=== PATIENT | female | born 1975 | race Caucasian/White ===

== ENCOUNTER 2017-05-02 08:15 | Emergency (ER) | payer OTHER ==
[2017-05-02] MEDS ORDERED: Alum-Mag Hydrox-Simethicone Susp (30 mL) PO STA (09:25)
--- NOTE | 2017-05-02 09:28 | C.PDOC ---
History Of Present Illness 41 y/o F c no PMHx p/w epigastric pain x 2 days. Pain is epigastric, nonradiating, sharp, started while cooking. Patient denies fever, chills, cough , hemoptysis, leg swelling, recent travel, recent surgery, hormone use, previous DVT or PE, nausea, vomiting, diarrhea. Time Seen by Provider: 05/02/17 09:14 Chief Complaint (Nursing): Chest Pain Past Medical History Vital Signs: Last Vital Signs Temp 97.6 F 05/02/17 12:02 Pulse 68 05/02/17 12:02 Resp 17 05/02/17 12:02 BP 110/70 05/02/17 12:02 Pulse Ox 98 05/02/17 13:27 Surgical History: Cholecystectomy Family History: States: Unknown Family Hx - Social History Hx Alcohol Use: No Hx Substance Use: No - Immunization History Hx Tetanus Toxoid Vaccination: No Hx Influenza Vaccination: No Hx Pneumococcal Vaccination: No Review Of Systems Except As Marked, All Systems Reviewed And Found Negative. Constitutional: Negative for: Fever Gastrointestinal: Negative for: Vomiting Physical Exam - Physical Exam Additional Physical Exam Comments: Gen: NAD Head: NC Eyes: No scleral icterus ENT: MMM Neck: Supple Chest: No tenderness CV: Regular rate Lungs: CTA b/l. Normal pulse oximetry. Abd: Epigastric tenderness without guarding or rebound. Soft Back: No CVA tenderness Skin: No rash Extremities: No leg swelling Neuro: Alert, no focal deficit ED Course And Treatment - Laboratory Results Result Diagrams: 05/02/17 09:34 05/02/17 09:34 O2 Sat by Pulse Oximetry: 98 Medical Decision Making Medical Decision Making: No abdominal guarding, will treat with medications for gastritis and reassess. Will check enzymes in this pain of 2 days. PERC negative. EKG NSR 70 bpm, no ST/T wave changes, normal axis, normal intervals. CXR HISTORY: chest pain COMPARISON: Chest x-ray performed 11/01/15 TECHNIQUE: Chest PA and lateral FINDINGS: LUNGS: No focal consolidation. Please note that chest x-ray has limited sensitivity for the detection of pulmonary masses. PLEURA: No significant pleural effusion identified. No definite pneumothorax . CARDIOVASCULAR: The cardiomediastinal silhouette appears within normal limits of size. OSSEOUS STRUCTURES: No acute osseous abnormality identified. VISUALIZED UPPER ABDOMEN: Unremarkable. OTHER FINDINGS: None. IMPRESSION: No focal consolidation identified. US - Abdomen HISTORY: RUQ/epigastric pain COMPARISON: Abdominal ultrasound 09/26/2015 TECHNIQUE: Sonographic evaluation of the abdomen. FINDINGS: LIVER: Measures 15.0 cm. Normal echogenicity of the liver parenchyma. No mass. No intrahepatic bile duct dilatation. Normal hepatopetal portal venous flow. GALLBLADDER: Unremarkable. No gallstones. COMMON BILE DUCT: Measures 3 mm. No stones. No dilatation. PANCREAS: Unremarkable as visualized. No mass. No ductal dilatation. RIGHT KIDNEY: Measures 13.1cm. Normal echogenicity. No calculus, mass, or hydronephrosis. LEFT KIDNEY: Measures 13.0cm. Normal echogenicity. No calculus or hydronephrosis. Lower pole cyst with nodular mural echogenic structure, likely calcification. . This cyst measures 0.6 x 0.9 x 1.3 cm. This was not seen on prior ultrasound examination. SPLEEN: Normal in size and contour. No mass. AORTA: No aneurysmal dilatation. IVC: Unremarkable. OTHER FINDINGS: None. IMPRESSION: Left lower pole renal cyst with nodular mural calcification. Otherwise unremarkable examination. NOTE: After US, patient states abdominal pain is resolved but now when taking breath, pain in the R upper shoulder/chest. Will send for d dimer. Impression: No large central or segmental pulmonary embolus identified. Patient in no distress, would like to go home. Instructed to f/u with primary care, return to ED for worsening symptoms. Disposition - Disposition Disposition: HOME/ ROUTINE Disposition Time: 13:09 Condition: STABLE Additional Instructions: Accession No. : [id number] Patient Name / ID : TOMMIE GAONA / [id number] Exam Date : 05/02/2017 12:37:57 ( Approved ) Study Comment : Sex / Age : F / 41Y Creator : Fredi Yu MD Dictator : Fredi Yu MD Astro Technician : Enrollment Specialist : Fredi Yu MD Approver2 : Report Date : 05/02/2017 13:04:58 My Comment : HISTORY: RUQ/epigastric pain COMPARISON: Abdominal ultrasound 09/26/2015 TECHNIQUE: Sonographic evaluation of the abdomen. FINDINGS: LIVER: Measures 15.0 cm. Normal echogenicity of the liver parenchyma. No mass. No intrahepatic bile duct dilatation. Normal hepatopetal portal venous flow. GALLBLADDER: Unremarkable. No gallstones. COMMON BILE DUCT: Measures 3 mm. No stones. No dilatation. PANCREAS: Unremarkable as visualized. No mass. No ductal dilatation. RIGHT KIDNEY: Measures 13.1cm. Normal echogenicity. No calculus, mass, or hydronephrosis. LEFT KIDNEY: Measures 13.0cm. Normal echogenicity. No calculus or hydronephrosis. Lower pole cyst with nodular mural echogenic structure, likely calcification. . This cyst measures 0.6 x 0.9 x 1.3 cm. This was not seen on prior ultrasound examination. SPLEEN: Normal in size and contour. No mass. AORTA: No aneurysmal dilatation. IVC: Unremarkable. OTHER FINDINGS: None. IMPRESSION: Left lower pole renal cyst with nodular mural calcification. Otherwise unremarkable examination. Instructions: Acute Abdomen (Belly Pain), Adult (DC) Forms: [employer] (Ukrainian) - Clinical Impression Clinical Impression: Epigastric pain
[2017-05-02 09:37] LABS: BASO % 0.4 % (0.0-2.0); EOS # 0.1 K/uL (0.0-0.7); EOS % 2.2 % (0.0-4.0); HEMOGLOBIN 13.1 g/dL (11.0-16.0); LYMPH # 2.1 K/uL (1.0-4.3); LYMPH % 33.9 % (20.0-40.0); MEAN CELL VOLUME 86.4 fL (81.0-99.0); MEAN CORPUSCULAR HEMOGLOBIN 29.9 pg (27.0-31.0); MEAN CORPUSCULAR HGB CONC 34.6 g/dL (33.0-37.0); MEAN PLATELET VOLUME 10.2 fL (7.2-11.7); MONO # 0.3 K/uL (0.0-0.8); MONO % 5.4 % (0.0-10.0); NEUT # 3.6 K/uL (1.8-7.0); NEUT % 58.1 % (50.0-75.0); RBC 4.39 Mil/uL (3.80-5.20); RED CELL DISTRIBUTION WIDTH 13.6 % (11.5-14.5); WHITE BLOOD COUNT 6.2 K/uL (4.8-10.8)
[2017-05-02] MEDS ORDERED: Aluminum Hydroxide/Magnesium Hydroxide Susp (30 mL) ONE (09:45)
[2017-05-02 09:56] LABS: ALB/GLOB RATIO 1.1 (1.0-2.1); ALT/SGPT 17 U/L (9-52); AST/SGOT 24 U/L (14-36); BLOOD UREA NITROGEN 14 mg/dL (7-17); CALCIUM 9.2 mg/dl (8.6-10.4); GFR AFRICAN-AMERICAN > 60; GFR NON-AFRICAN AMERICAN > 60; LIPASE 95 U/L (23-300)
[2017-05-02 10:02] LABS: CK-MB 0.38 ng/mL (0.0-3.38)
[2017-05-02 10:09] LABS: HCG,QUALITATIVE URINE NEGATIVE (NEGATIVE)
[2017-05-02 10:14] LABS: SQUAMOUS EPITHIAL 8 /hpf (0-5); URINE BILIRUBIN NEGATIVE (NEGATIVE); URINE BLOOD NEGATIVE (NEGATIVE); URINE CLARITY Hazy (Clear); URINE COLOR Yellow (YELLOW); URINE GLUCOSE (UA) NORMAL (Normal); URINE LEUKOCYTE ESTERASE TRACE Leu/uL (Negative); URINE NITRATE NEGATIVE (NEGATIVE); URINE PROTEIN NEGATIVE (NEGATIVE); URINE UROBILINOGEN NORMAL mg/dL (0.2-1.0)
--- NOTE | 2017-05-02 11:48 | RAD ---
HISTORY: chest pain COMPARISON: Chest x-ray performed 11/01/15 TECHNIQUE: Chest PA and lateral FINDINGS: LUNGS: No focal consolidation. Please note that chest x-ray has limited sensitivity for the detection of pulmonary masses. PLEURA: No significant pleural effusion identified. No definite pneumothorax . CARDIOVASCULAR: The cardiomediastinal silhouette appears within normal limits of size. OSSEOUS STRUCTURES: No acute osseous abnormality identified. VISUALIZED UPPER ABDOMEN: Unremarkable. OTHER FINDINGS: None. IMPRESSION: No focal consolidation identified.
--- NOTE | 2017-05-02 13:06 | US ---
HISTORY: RUQ/epigastric pain COMPARISON: Abdominal ultrasound 09/26/2015 TECHNIQUE: Sonographic evaluation of the abdomen. FINDINGS: LIVER: Measures 15.0 cm. Normal echogenicity of the liver parenchyma. No mass. No intrahepatic bile duct dilatation. Normal hepatopetal portal venous flow. GALLBLADDER: Unremarkable. No gallstones. COMMON BILE DUCT: Measures 3 mm. No stones. No dilatation. PANCREAS: Unremarkable as visualized. No mass. No ductal dilatation. RIGHT KIDNEY: Measures 13.1cm. Normal echogenicity. No calculus, mass, or hydronephrosis. LEFT KIDNEY: Measures 13.0cm. Normal echogenicity. No calculus or hydronephrosis. Lower pole cyst with nodular mural echogenic structure, likely calcification. . This cyst measures 0.6 x 0.9 x 1.3 cm. This was not seen on prior ultrasound examination. SPLEEN: Normal in size and contour. No mass. AORTA: No aneurysmal dilatation. IVC: Unremarkable. OTHER FINDINGS: None. IMPRESSION: Left lower pole renal cyst with nodular mural calcification. Otherwise unremarkable examination.
[2017-05-02] MEDS ORDERED: Iodixanol 320 MG/ML 100 ML BOTTLE IV ONE (15:46)
--- NOTE | 2017-05-02 16:53 | CT ---
CTA chest PE protocol Indication: pleuritic chest pain, elevated d dimer Technique: Contiguous axial images were obtained through the chest with intravenous contrast enhancement. Sagittal and coronal reconstructions were generated and reviewed. This CT exam was performed using 1 or more of the following dose reduction techniques: Automated exposure control, adjustment of the MAA and/or kV according to patient size, and/or use of iterative reconstruction technique. IV Contrast: 100 mL Visipaque IV Radiation dose (DLP): 422.97 MGy-cm. Comparison: Chest x-ray performed 05/02/17 Findings: Visualized portions of the inferior thyroid gland appear unremarkable. The mediastinal and hilar vascular structures appear within normal limits. The heart appears within normal limits of size. No large central or segmental pulmonary embolus evident. No focal consolidation. No pleural effusion. No pneumothorax. No suspicious pulmonary nodules measuring greater than 5 mm. Limited visualized portions of the upper abdomen appear grossly unremarkable. No acute osseous abnormality is detected. Impression: No large central or segmental pulmonary embolus identified.
[2017-05-02 17:05] VITALS: BP 110/62; PULSE 61; RESP 15; TEMP 98.2; O2SAT 99
--- NOTE | 2017-05-03 20:15 | CARD ---
APPROVED REPORT EKG Measurement Heart [id number] <Conclusion> Normal sinus rhythm Cannot rule out Anterior infarct, age undetermined Abnormal ECG
== END 2017-05-02 17:03 | disposition home or self-care (01) ==
LOC: C.ER 08:15
DX: R10.13 Epigastric pain (principal)
CPT/HCPCS: 36415; 71046; 71275; 76700; 80053; 81001; 82550; 82553; 83690; 84484; 84703; 85025; 85378; 93005; 96374; 96375; 99285; J1885; Q9967